=== PATIENT | female | born 1975 | race Two or more races ===

== ENCOUNTER → 2025-08-11 | Emergency (ER) | payer OTHER ==
[~2025-08-11] VITALS: Ht 160 cm; Wt 89.8 kg
[~2025-08-11] MED LIST: 0.9 % SODIUM CHLORIDE 1,000 ML IV ONE; OMEPRAZOLE20 MG
[2025-08-11 00:13] VITALS: BP 99/69; O2SAT 100
[2025-08-11 01:46] LABS: URINE APPEARANCE Cloudy; URINE BILIRRUBIN Negative (NEGATIVE); URINE BLOOD Negative; URINE COLOR Yellow; URINE GLUCOSE Negative (NEGATIVE); URINE KETONE Negative (NEGATIVE); URINE LEUKOCYTE Small; URINE NITRATE Negative; URINE PROTEIN Negative (NEGATIVE); URINE UROBILINOGEN 1.0 E.U./dl
[2025-08-11 01:47] LABS: BASO % 0.6 % (0.1-1.2); EOS # 0.20 (0.04-0.54); EOS % 2.6 % (0.7-7.0); LYMPH # 2.12 (1.18-3.74); LYMPH % 27.0 % (19.3-53.1); MEAN PLATELET VOLUME 10.90 fl (9.4-12.4); MONO # 0.53 (0.24-0.82); MONO % 6.8 % (4.7-12.5); NEUT # 4.91 (1.56-6.13); NEUT % 62.6 % (34.0-71.1); RED CELL DISTRIBUTION WIDTH 13.9 % (11.6-14.4)
[2025-08-11 01:47] LABS: URINE EPITHELIAL CELLS 54.8 uL (0.0-38.8); URINE RBC 14.4 uL (0.0-20.8); URINE WBC 116.2 uL (0.0-23.2)
[2025-08-11 02:14] LABS: ALT/SGPT 29.0 U/L (12-78); AST/SGOT 33.0 U/L (15-37); BILIRUBIN TOTAL 0.4 mg/dL (0.3-1.2); BUN CREA RATIO 31.0 (7.0-25.0); CREATININE SERUM 0.62 mg/dL (0.55-1.02); GFR 101.08; GLOBULINA 4.1 G/DL (2.4-3.5); GLUCOSE FASTING 95.0 mg/dL (65-100); OSMOLALITY SERUM 280.0 MOSM/KG (275-295)
[2025-08-11 02:21] LABS: URINE CAST 1.27 uL (0.0-1.40)
== END | disposition home or self-care (01) ==
LOC: ER 00:01
PROVIDERS: General Practice
DX: R55 Syncope and collapse (principal)